=== PATIENT | female | born 1975 | race Caucasian/White ===

== ENCOUNTER 2018-11-22 10:23 | Emergency (ER) | payer SELFPAY ==
[~2018-11-22] VITALS: Ht 162.6 cm; Wt 85.7 kg
[2018-11-22 10:23] VITALS: BP 124/86
--- NOTE | 2018-11-22 10:35 | NUR ---
BIBA W/ C/O LOWER BACK PAIN 10/10 AND SHARP X3 WEEKS. PT STATES THE PAIN EXACERBATED YESTERDAY ACCOMPANIED BY NAUSEA AND DIZZINESS. PT STATES SHE WENT TO THE HOSPITAL 3 WEEKS AGO FOR SAME SYMPTOMS AND WAS TOLD SHE HAD AN INFECTION BUT STATES SHE DID NOT TAKE HER ABX D/T NOT HAVING INSURANCE. BOWEL SOUNDS ACTIVE X4, ABDOMEN SOFT/FLAT/NON TENDER TO PALPATION. BED IN LOW POSITION, SIDE RAIL UP X1. PT RECEIVED 50MCG FENTANYL AND 4MG ZOFRAN IVP IN FIELD.
[2018-11-22] MEDS ORDERED: KETOROLAC 30 MG/ML VIAL IVP ONE (12:05)
[2018-11-22 12:31] LABS: APPEARANCE,URINE HAZY (CLEAR); BILIRUBIN,URINE NEGATIVE (NEGATIVE); BLOOD, URINE 3+ (NEGATIVE); LEUKOCYTE ESTERASE ,URINE 1+ (NEGATIVE); NITRITE, URINE NEGATIVE (NEGATIVE); UGLUCOSE NEGATIVE (NEGATIVE)
[2018-11-22 12:35] LABS: COLOR,URINE YELLOW (YELLOW)
[2018-11-22 12:46] LABS: RBC,URINE 20-50 /HPF (0-5)
[2018-11-22] MEDS ORDERED: cefTRIAXone 1,000 MG VIAL ONE (13:23)
[2018-11-22 14:00] VITALS: BP 95/55
== END 2018-11-22 14:00 | disposition home or self-care (01) ==
LOC: MED 10:23
DX: N39.0 Urinary tract infection, site not specified (principal); Z90.49 Acquired absence of other specified parts of digestive tract
CPT/HCPCS: 81001; 81025; 87086; 96365; 96375; 99283; J0696; J1885